=== PATIENT | male | born 1985 | race Caucasian/White ===

== ENCOUNTER 2022-05-09 18:35 | Emergency (ER) | payer SELFPAY ==
--- NOTE | 2022-05-09 20:07 | EDPHYS ---
Physician Documentation [facility] Name: Chemo Crawford Age: 37 yrs Sex: Male : 1985 Arrival Date: 05/09/2022 Time: 18:37 Bed Waiting Private MD: ED Physician Lico Strange HPI: 05/09 20:03 This 37 yrs old Male presents to ER via Ambulatory with complaints of Nose Pain - cp infection. 20:03 The patient presents with swelling, erythema. Onset: The symptoms/episode cp began/occurred 1 week(s) ago. Associated signs and symptoms: The patient has no apparent associated signs or symptoms. Historical: - Allergies: 19:16 No Known Allergies; aa9 - Home Meds: 19:16 None [Active]; aa9 - PMHx: 19:16 prediabetic; aa9 - PSHx: 19:16 acl replacement; aa9 - Immunization history:: Client reports receiving the 2nd dose of the Covid vaccine, Flu vaccine is not up to date. - Social history:: Smoking status: Patient reports the use of cigarette tobacco products, smokes one-half pack cigarettes per day. ROS: 20:04 Constitutional: Negative for body aches, chills, fever. cp 20:04 ENT: Positive for swelling and erythema of nose, Negative for drainage from ear(s), ear pain, sore throat, difficulty swallowing, difficulty handling secretions. 20:04 Respiratory: Negative for cough, shortness of breath, wheezing. 20:04 Neuro: Negative for headache. 20:04 All other systems are negative. Exam: 20:04 Constitutional: The patient appears in no acute distress, alert, awake, non-toxic, well cp developed, well nourished. 20:04 Head/face: Noted is erythema, that is mild, of the nose, swelling, that is mild, of the nose. 20:04 Eyes: Periorbital structures: appear normal, Conjunctiva: normal, no exudate, no injection, Lids and lashes: appear normal, bilaterally. 20:04 ENT: External ear(s): are unremarkable, Mouth: Lips: moist, Oral mucosa: pink and intact, moist, Posterior pharynx: Airway: no evidence of obstruction, patent. 20:04 Chest/axilla: Inspection: normal. 20:04 Cardiovascular: Rate: normal. 20:04 Respiratory: the patient does not display signs of respiratory distress, Respirations: normal, no use of accessory muscles, no retractions. Vital Signs: 19:18 BP 133 / 79; Pulse 86; Resp 16 S; Temp 98.9(O); Pulse Ox 98% on R/A; Weight 86.18 kg aa9 (R); Height 6 ft. 1 in. (185.42 cm) (R); Pain 6/10; 19:18 Body Mass Index 25.07 (86.18 kg, 185.42 cm) aa9 MDM: 20:07 Patient medically screened. cp 20:07 Data reviewed: vital signs, nurses notes, and as a result, I will discharge patient. cp 20:07 Counseling: I had a detailed discussion with the patient and/or guardian regarding: the cp historical points, exam findings, and any diagnostic results supporting the discharge/admit diagnosis, to return to the emergency department if symptoms worsen or persist or if there are any questions or concerns that arise at home. Administered Medications: No medications were administered Disposition: 23:54 Co-signature as Attending Physician, Lico Strange MD I agree with the assessment and kdr plan of care. Disposition Summary: 05/09/22 20:07 Discharge Ordered Location: Home cp Problem: new cp Symptoms: have improved cp Condition: Stable cp Diagnosis - Cellulitis of face - nose cp Followup: cp - With: Private Physician - When: 1 - 2 days - Reason: Worsening of condition Discharge Instructions: - Discharge Summary Sheet cp - Cellulitis, Adult cp Forms: - Medication Reconciliation Form cp - Thank You Letter cp - Antibiotic Education cp - Prescription Opioid Use cp Prescriptions: - Bactrim DS 800-160 mg Oral Tablet - take 1 tablet by ORAL route every 12 hours for 10 days; 20 tablet; Refills: 0, cp Product Selection Permitted - mupirocin 2 % Topical ointment - apply 1 application by TOPICAL route 3 times per day; 15 gram; Refills: 0, cp Product Selection Permitted Signatures: Lico Strange MD MD [facility] Skyler Padilla PA PA cp Daisy Early, RN RN aa9
--- NOTE | 2022-05-09 20:07 | ER ---
Nurse's Notes [facility] Name: Chemo Crawford Age: 37 yrs Sex: Male : 1985 Arrival Date: 05/09/2022 Time: 18:37 Bed Waiting [facility] MD: Diagnosis: Cellulitis of face-nose Presentation: 05/09 19:18 Chief complaint: Patient states: I have a pimple in my nose. It oozed green fluid aa9 today. Coronavirus screen: Vaccine status: Patient reports receiving the 2nd dose of the covid vaccine. Ebola Screen: No symptoms or risks identified at this time. Initial Sepsis Screen: Does the patient meet any 2 criteria? No. Patient's initial sepsis screen is negative. Does the patient have a suspected source of infection? Yes:. Risk Assessment: Do you want to hurt yourself or someone else? Patient reports no desire to harm self or others. Onset of symptoms was May 09, 2022. 19:18 Method Of Arrival: Ambulatory aa9 19:18 Acuity: APURVA 4 aa9 Triage Assessment: 19:18 General: Appears uncomfortable, Behavior is cooperative, anxious. Pain: Complains of aa9 pain in nose Pain currently is 6 out of 10 on a pain scale. Quality of pain is described as throbbing. Historical: - Allergies: 19:16 No Known Allergies; aa9 - Home Meds: 19:16 None [Active]; aa9 - PMHx: 19:16 prediabetic; aa9 - PSHx: 19:16 acl replacement; aa9 - Immunization history:: Client reports receiving the 2nd dose of the Covid vaccine, Flu vaccine is not up to date. - Social history:: Smoking status: Patient reports the use of cigarette tobacco products, smokes one-half pack cigarettes per day. Screenin:49 Abuse screen: Denies threats or abuse. Denies injuries from another. Nutritional as6 screening: No deficits noted. Tuberculosis screening: No symptoms or risk factors identified. Fall Risk None identified. Vital Signs: 19:18 BP 133 / 79; Pulse 86; Resp 16 S; Temp 98.9(O); Pulse Ox 98% on R/A; Weight 86.18 kg aa9 (R); Height 6 ft. 1 in. (185.42 cm) (R); Pain 6/10; 19:18 Body Mass Index 25.07 (86.18 kg, 185.42 cm) aa9 ED Course: 18:37 Patient arrived in ED. am2 19:08 Skyler Padilla PA is PHCP. cp 19:08 Lico Strange MD is Attending Physician. cp 19:20 Triage completed. aa9 19:20 Arm band placed on. aa9 20:49 No provider procedures requiring assistance completed. Patient did not have IV access as6 during this emergency room visit. 20:50 Patient has correct armband on for positive identification. as6 Administered Medications: No medications were administered Medication: 20:50 VIS not applicable for this client. as6 Outcome: 20:07 Discharge ordered by MD. cp 20:49 Discharged to home ambulatory. as6 20:49 Condition: stable 20:49 Discharge instructions given to patient, Instructed on discharge instructions, follow up and referral plans. medication usage, Demonstrated understanding of instructions, follow-up care, medications, Prescriptions given X 2. 20:50 Patient left the ED. as6 Signatures: Skyler Padilla PA PA cp Adrianne Leon am2 Doug Bowen RN RN as6 Daisy Early, RAIMUNDO RN aa9 Corrections: (The following items were deleted from the chart) 19:20 19:18 Acuity: APURVA 3 aa9 aa9
[2022-05-09 22:59] VITALS: BP 133/79; TEMP 98.9; O2SAT 98
== END 2022-05-09 20:50 | disposition home or self-care (01) ==
LOC: ER 18:35
DX: J34.0 Abscess, furuncle and carbuncle of nose (principal); F17.210 Nicotine dependence, cigarettes, uncomplicated
CPT/HCPCS: 99282